=== PATIENT | male | born 1965 | race African-American/Black ===

== ENCOUNTER 2017-08-27 14:47 | Observation (INO) | payer OTHER ==
[~2017-08-27] VITALS: Ht 182.9 cm; Wt 115.7 kg
[~2017-08-27 14:47] MED LIST: TAMIFLU 75MG75 MG PO
[2017-08-27 15:20] LABS: ABSOLUTE BASOPHIL COUNT 0 /CUMM (0.0-0.2); ABSOLUTE EOSINOPHIL COUNT 0.1 /CUMM (0.0-0.7); ABSOLUTE GRANULOCYTE CT 6.4 /CUMM (1.4-6.5); ABSOLUTE LYMPH COUNT 1.5 /CUMM (1.2-3.4); ABSOLUTE MONOCYTE COUNT 0.7 /CUMM (0.10-0.60); BASOPHIL % 0.4 % (0.0-2.0); EOSINOPHIL % 0.9 % (0-5); GRANULOCYTE % 73.6 % (42.2-75.2); HEMATOCRIT 45.9 % (42-52); MEAN CORPUSCULAR HGB 26.6 PG (27.0-31.0); MEAN CORPUSCULAR HGB CONC 32.6 G/DL (33.0-37.0); MEAN CORPUSCULAR VOLUME 81.5 FL (80.0-94.0); MEAN PLATELET VOLUME 8.9 FL (7.4-10.4); PLATELET COUNT 212 /CUMM (130-400); RBC DISTRIBUTION WIDTH 14.5 % (11.5-14.5); RED BLOOD CELL CT 5.64 /CUMM (4.70-6.10); WHITE BLOOD CELL COUNT 8.7 /CUMM (4.8-10.8)
[2017-08-27] MEDS ORDERED: MEDROL4 M2 PO (15:23)
[2017-08-27] MEDS ORDERED: DUEXIS 800-26.1 EACH PO (15:23)
[2017-08-27] MEDS ORDERED: CYCLOBENZAPRINE10 M1 PO (15:24)
--- NOTE | 2017-08-27 15:36 | ED NECK/BACK PAIN COMPLAINT ---
History of Present Illness General Chief Complaint: Low Back Pain/Injury Stated Complaint: BACK PAIN Source: patient, old records, friend Exam Limitations: no limitations Vital Signs & Intake/Output Vital Signs & Intake/Output Vital Signs Date Time Temp Pulse Resp B/P B/P Pulse O2 O2 Flow FiO2 Mean Ox Delivery Rate 08/27 1613 66 16 148/84 94 Room Air Room Air 08/27 1449 98.4 72 18 146/80 98 Room Air Allergies Coded Allergies: NO KNOWN ALLERGIES (12/28/12) NO ALLERGIES PER RN AT 1633 ON 12/28/12 - [facility] Reconcile Medications Cyclobenzaprine HCl 10 MG TABLET 1 TAB PO TID MUSCLE RELAXANT (Reported) Ibuprofen/Famotidine (Duexis 800-26.6 MG Tablet) 800 MG-26.6 MG TABLET 1 TAB PO TID PAIN (Reported) Methylprednisolone. (Medrol) 4 MG TAB.DS.PK 1 DP PO DAILY STEROID (Reported) 6 on day 1 then reduce by one tablet daily until gone Triage Note: RECEIVED [address] [employer] EMPLOYEE BOUGHT DIRECTLY TO ROOM # 7 WITH C/O MID LOWER BACK PAIN, STARTED LAST SUNDAY. PT PRESENTS TO THE ED TODAY WITH WORSENING BACK PAIN NOW RADIATING TO BUTTUCK, RIGHT ANTERIOR AND POSTERIOR THIGH, WITH INABILITY TO WEIGHT BEAR AND NUMBNESS/TINGLING TO RIGHT THIGH. EVALUATED BY DR VALENZUELA UPON ARRIVAL TO THE ED AND ROOM # 7. Triage Nurses Notes Reviewed? yes Onset: Last week Duration: day(s):, continues in ED, getting worse, waxing and waning Timing: recent history Quality/Severity: severe, radiation Location: lumbar spine, paraspinous muscles Radiation: buttocks, upper legs Context: turning/bending Method of Injury: twisted Loss of Consciousness: no loss of consciousness Modifying Factors: immobilization, jarring, movement, pain medication, rest Associated Symptoms: lower back pain, muscle spasm, numbness in legs/feet, trouble walking HPI: 1 week prior to admission patient recalls assisting with hip surgery and later felt his lower back tighten up. He has had progressive increase in pain limited range of motion despite steroid muscle relaxant anti-inflammatory. His pain became debilitating unable to get out of bed without difficulty complaining of severe mid to right low back pain radiating to the outer thigh and knee with tingling and numbness to this area. He denies fever chills nausea vomiting diarrhea abdominal pain chest pain shortness breath headache dysuria rash bleeding change in bowel bladder habit. Past History Travel History Traveled to [place] past 21 day Yes Medical History Any Pertinent Medical History? 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 No Review of Systems Review of Systems Constitutional: Reports: no symptoms. Eyes: Reports: no symptoms. Ears, Nose, Throat, Mouth: Reports: no symptoms. Respiratory: Reports: no symptoms. Cardiovascular: Reports: no symptoms. Gastrointestinal/Abdominal: Reports: no symptoms. Musculoskeletal: Reports: see HPI, back pain, muscle pain, muscle stiffness. Skin: Reports: no symptoms. Neurological/Psychological: Reports: no symptoms. All Other Systems: Reviewed and Negative Physical Exam Physical Exam General Appearance: well developed/nourished, alert, awake, anxious, severe distress, obese Head: atraumatic, normal appearance Eyes: Bilateral: normal appearance, PERRL, EOMI, normal inspection. Ears, Nose, Throat, Mouth: hearing grossly normal, moist mucous membrane Neck: normal inspection, supple, full range of motion, normal alignment Respiratory: normal breath sounds, chest non-tender, no respiratory distress, quiet respiration, lungs clear Cardiovascular: regular rate/rhythm, normal peripheral pulses, norml femoral pulses equa Peripheral Pulses: 4+ carotid (R), 4+ carotid (L) Gastrointestinal: normal bowel sounds, soft, non-tender, no organomegaly Back: normal inspection, vertebral tenderness, decreased range of motion, muscle spasm Extremities: non-tender Straight Leg Raising: Right: Pain at ____ degrees (5). Left: Pain at ____ degrees (5). Sensory: Medial Le: L4R, L4L. Top of Foot: 2: L5R, L5L. Sole of Foot: 2: SIR, MARIMAR. Motor: Deficit L4 Right: No Deficit L4 Left: No Deficit L5 Right: No Deficit L5 Left: No Deficit S1 Right: No Deficit S1 Right: No DTR: Deficit L4 Left: No Deficit L4 Right: No Deficit S1 Left: No Deficit S1 Right: No Neurologic/Psych: awake, alert, oriented x 3, normal mood/affect Skin: intact, normal color, warm/dry Core Measures CVA/TIA Diagnosis: No Progress Differential Diagnosis: herniated disc, myofascial strain, sciatica, T/L spine injury Plan of Care: Orders Procedure Date/time Status Regular Diet 08/27 D Active OXYGEN SETUP (GEN) 08/27 1725 Active Saline Lock 08/[address] in observation 08/27 172 Active Vital Signs 08/27 1725 Active Activity/Ambulation 08/27 172 Active Code Status 08/27 172 Active HIGH SENSITIVITY CRP 08/27 145 Complete WESTERGREN SED RATE 08/27 145 Complete COMPREHENSIVE METABOLIC PANEL 08/27 145 Complete CBC WITHOUT DIFFERENTIAL 08/27 1454 Complete Current Medications Sig/Jeni Start time Last Medication Dose Stop Time Status Admin Dexamethasone 10 MG ONCE ONE 08/27 173 UNir (Decadron) 08/27 173 Laboratory Tests 08/27/17 1512: Anion Gap 11, Estimated GFR > 60, BUN/Creatinine Ratio 21.0, Glucose 94, Calcium 9.3, Total Bilirubin 0.6, AST 14 L, ALT 24, Alkaline Phosphatase 52, C-React Prot High Sens 0.6 L, Total Protein 7.0, Albumin 3.5, Globulin 3.5, Albumin/ Globulin Ratio 1.0 L, CBC w Diff NO MAN DIFF REQ, RBC 5.64, MCV 81.5, MCH 26.6 L, MCHC 32.6 L, RDW 14.5, MPV 8.9, Gran % 73.6, Lymphocytes % 17.3 L, Monocytes % 7.8, Eosinophils % 0.9, Basophils % 0.4, Absolute Granulocytes 6.4, Absolute Lymphocytes 1.5, Absolute Monocytes 0.7 H, Absolute Eosinophils 0.1, Absolute Basophils 0, ESR Westergren 8 Diagnostic Imaging: Viewed by Me: MRI. Discussed w/RAD: MRI. Radiology Impression: 1. Small central disc herniation at L2-L3. 2. At L4-L5, there is disc herniation into the right foraminal zone resulting in impingement upon the exiting right L4 nerve root. Departure Departure Time of Disposition: 1736 Disposition: STILL A PATIENT Condition: Stable Clinical Impression Primary Impression: Intractable back pain Secondary Impressions: Intervertebral disk syndrome, Lumbar nerve root impingement Referrals: Adolfo Johnson MD (PCP/Family) Departure Forms: Customer Survey General Discharge Information Observation Note Spoke With: Cheryl RUSSO,Scarlet Clayton Physician Advisor Notified: CARLOS RUSSO,HANK Maki Place Patient In: Non-ED OBS Care Area Rationale for Observation: My rational for observation is as follows analgesia steroids neurosurgery evaluation physical therapy continuing care discharge planning. Critical Care Note Critical Care Note Critical Care Time: 30-74 min (35)
--- NOTE | 2017-08-27 17:41 | MRI REPORT ---
EXAMINATION: MR LUMBAR SPINE WITHOUT CONTRAST CLINICAL INFORMATION: Lower back pain radiating to right thigh and knee. Sciatica. COMPARISON: None TECHNIQUE: MRI of the lumbar spine without contrast was obtained using routine sequences on a high-field 1.5 Ama magnet. FINDINGS: VERTEBRAL BODIES AND PARASPINAL STRUCTURES: The lumbar vertebral bodies have normal height, alignment and marrow signal intensity. Paraspinal soft tissues are unremarkable. CONUS MEDULLARIS AND CAUDA EQUINA: Conus medullaris is normal, terminating at the T12-L1 level. The nerves of the cauda equina are normal with respect to their caliber, course and signal. SPINAL LEVELS: L1-L2: Unremarkable. L2-L3: Small central disc protrusion produces mild indentation on the ventral surface of the thecal sac. No central canal or neural foraminal stenosis. L3-L4: Unremarkable. L4-L5: There is disc protrusion in the right foraminal zone. The disc material impinges upon the exiting right L4 nerve root. Otherwise, unremarkable. No central canal stenosis or left-sided neural foraminal stenosis. L5-S1: Unremarkable. IMPRESSION: 1. Small central disc herniation at L2-L3. 2. At L4-L5, there is disc herniation into the right foraminal zone resulting in impingement upon the exiting right L4 nerve root.
--- NOTE | 2017-08-27 17:50 | PN- Neurosurgical ---
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 Was placed on medrol dose mey and flexeril 3d ago without improvement and presents to ED for further eval today. Denies LLE pain, N/T/W and denies B/B dysfunction. No h/o similar sx in past or recent trauma, but job requires him to lift on regular basis in the OR and on floor. Neurologic exam c/w normal motor and sensory exam bilat LE. Hypoactive DTR's bilat knees, 1+ bilat ankles, no LT signs + R SLR at 40 degrees, neg L SLR to 90 gait not tested as pt somewhat sedated from recent MSO4 and ativan MRI with right lateral, foraminal and far lateral L4/5 HNP with R L4/5 NRI. Otherwise normal disc heights, alignment and no other signif region of HNP or neural impingement. Impr: Acute R L4/5 HNP with radiculopathy Plan: -admit Neurosurgery -pain control -10-14d prednisone taper, GI prophylaxis -start neurontin 300mg tonight, then 300bid tomorrow -can try ultram [id number] prn, robaxin 750Q8 prn -try to avoid opioids but if needed, consider vicoden 5mg q4-6h prn -DVT prophylaxis -PT eval in am -if pain control remains an issue, consider selective R L4 NRB -if pain improves, consider outpt PT trial -if fails trial of conservative tx, would be candidate for surgery Discussed impression and plan with pt who is in agreement. Surgical PA's, ED attending also aware.
--- NOTE | 2017-08-27 19:01 | History & Physical Pre-Op ---
Yamile Alfaro 08/27/17 0359: General Information and HPI MD Statement: I have seen and personally examined ALBERTO MO and documented this H&P. The patient is a 52 year old M who presented with a patient stated chief complaint of [low back pain with radiculopathy to right lower extremity]. History of Present Illness: Alberto Mo is a 52 year old male who presents to the ER today with complaints of low back pain with radiculopathy to his entire right lower extremity. Onset of discomfort was approximately one week ago while and began acutely while assisting in a surgical procedure at work. Over the course of the week he has noted paresthesias in the anterior thigh while ambulatory. He has tried flexoril as well as nsaids and medrol dose pack with minimal relief. Today he presents with increasing difficulty moving his right leg and an inability to walk related to his discomfort. Symptoms improve when supine. He denies any bowel or bladder incontinence. He denies any prior back injury. He denies any spine related surgery. He is medically healthy. Allergies/Medications Allergies: Coded Allergies: NO KNOWN ALLERGIES (12/28/12) NO ALLERGIES PER RN AT 1633 ON 12/28/12 - [facility] Home Med list Cyclobenzaprine HCl 10 MG TABLET 1 TAB PO TID MUSCLE RELAXANT (Reported) Docusate Sodium (Colace) 100 MG CAPSULE 1 CAP PO BID CONSITPATION DISCONTINUE USE IF YOU DEVELOP LOOSE STOOL OR DIARRHEA Ibuprofen/Famotidine (Duexis 800-26.6 MG Tablet) 800 MG-26.6 MG TABLET 1 TAB PO TID PAIN (Reported) Methocarbamol (Robaxin-750) 750 MG TABLET 1 TAB PO Q8P PRN SPASM Methylprednisolone. 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 Home Who Do You Live With? spouse Primary Language: Dutch Functional Ability ADLs Independent: dressing, eating, toileting, bathing. Employment History Employment: Employed Review of Systems Review of Systems Constitutional: Reports: weakness (right lower extremity). EENTM: Reports: no symptoms. Cardiovascular: Reports: no symptoms. Respiratory: Reports: no symptoms. GI: Reports: no symptoms. Genitourinary: Reports: no symptoms. Musculoskeletal: Reports: back pain. Skin: Reports: no symptoms. Neurological/Psychological: Reports: no symptoms. Hematologic/Endocrine: Reports: no symptoms. Immunologic/Allergic: Reports: no symptoms. All Other Systems: Reviewed and Negative Exam & Diagnostic Data Last 24 Hrs of Vital Signs/I&O Vital Signs Date Time Temp Pulse Resp B/P B/P Pulse O2 O2 Flow FiO2 Mean Ox Delivery Rate 08/27 1613 66 16 148/84 94 Room Air Room Air 08/27 1449 98.4 72 18 146/80 98 Room Air Intake & Output 08/27 1600 08/27 0800 08/27 0000 Intake Total Output Total Balance Patient 255 lb Weight Physical Exam: Physical exam completed by Dr. Luna, please see brief attending note for findings. Assessment/Plan Assessment/Plan: This is a 52 year old male who presents to ER today with complaints of back pain and radiculopathy to right lower extremity that began approximately one week ago while assisting in a surgical procedure at work. 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 He has been evaluated by Dr. Scarlet Luna. He has undergone an MRI which shows evidence of a disc herniation and nerve root compression at L4-5. -Place in 23 hour observation status for pain control -Physical therapy evaluation tomorrow -Tramadol 50 q6p -Robaxin 750 q8p -Offirmev 1000mg q6p -Prednisone 60 tonight to start a 10-14 day taper. Remainder of taper will be as follows: day 2: 40 mg day 3: 40 mg day 4: 30 mg day 5: 30 mg day 6: 20 mg day 7: 20 mg day 8: 20 mg day 9: 10 mg day 10: 10 mg day 11: 10 mg day 12: 5 mg day 13: 5 mg day 14: 5 mg -Gabapentin 300 tonight -Gabapentin 300 bid tomorrow -Gabapentin 300 in morning and 600 in evening starting sunday -GI ppx: Prilosec 40 daily -DVT ppx: ALPS, hep sub q If pain is adequately controlled, discharge to home tomorrow to follow up with Dr. Luna as outpatient If unable to control pain, will consider an L4 NRB as described by Dr. Luna in her brief attending note. Bowel regimen given, regular diet. As Ranked By This Provider Problem List: 1. Intractable back pain 2. Lumbar nerve root impingement 3. Intervertebral disk syndrome
[2017-08-27 20:48] VITALS: BP 138/92
[2017-08-28 06:44] VITALS: BP 128/80
--- NOTE | 2017-08-28 07:38 | PN- Neurosurgical ---
Subjective Subjective: Pt reports stable sx's of right ant thigh pain and parasthesias with movement and weight bearing but minimal in bed. No new complaints. Objective Vital Signs and I&Os Vital Signs Date Time Temp Pulse Resp B/P B/P Pulse O2 O2 Flow FiO2 Mean Ox Delivery Rate 08/29 643 97.7 70 22 128/80 95 Room Air 08/278 98.2 67 18 138/92 94 Room Air 08/27 2009 98.0 64 16 119/73 94 Room Air Room Air 08/27 1613 66 16 148/84 94 Room Air Room Air 08/27 1449 98.4 72 18 146/80 98 Room Air Intake & Output 08/28 0000 08/27 1600 08/27 0808/27 0000 08/26 1600 Intake Total Output Total 400 Balance -400 Output, Urine 400 Patient 115.666 kg 115.666 kg Weight Physical Exam: Pt awake and alert conversive and appropriate motor is full bilat LE to confrontational testing, sensory also grossly intact, + SLR no LE edema, no calf tenderness abd soft voiding on own Current Medications: Current Medications Sig/Jeni Start time Last Medication Dose Route Stop Time Status Admin Acetaminophen 1,000 MG Q6P PRN 08/27 1830 AC 08/28 N/A 1 UNIT IV 0145 Dexamethasone 10 MG ONCE ONE 08/27 1730 CAN IV 08/27 1731 Docusate Sodium 100 MG DAILY 08/28 1000 AC PO Gabapentin 300 MG BID 08/27 2200 AC 08/27 PO 2012 Gabapentin 0 .STK-MED ONE 08/27 1953 DC PO Gabapentin 300 MG ONCE ONE 08/27 1730 CAN PO 08/27 1731 Heparin Sodium 5,000 UNIT Q8 08/27 2200 AC (Porcine) SC Ketorolac 0 .STK-MED ONE 08/27 1527 DC Tromethamine .ROUTE Ketorolac 30 MG ONCE ONE 08/27 1500 DC 08/27 Tromethamine IV 08/27 1501 1537 Lorazepam 0 .STK-MED ONE 08/27 1614 DC .ROUTE Lorazepam 1 MG ONCE ONE 08/27 1600 DC 08/27 IV 08/27 1601 1613 Lorazepam 0 .STK-MED ONE 08/27 1529 DC .ROUTE Lorazepam 1 MG ONCE ONE 08/27 1500 DC 08/27 IV 08/27 1501 1537 Methocarbamol 750 MG Q8P PRN 08/27 1845 AC 08/28 PO 0145 Morphine Sulfate 0 .STK-MED ONE 08/27 1527 DC .ROUTE Morphine Sulfate 4 MG ONCE ONE 08/27 1500 DC 08/27 IV 08/27 1501 1537 Omeprazole 0 .STK-MED ONE 08/27 2021 DC PO Omeprazole 40 MG DAILY AC 08/27 1823 AC 08/28 PO 0643 Ondansetron HCl 4 MG Q8P PRN 08/27 181 AC IV Prednisone 40 MG DAILY 08/28 1000 AC PO Prednisone 60 MG ONCE ONE 08/27 1830 DC 08/27 PO 08/27 1832011 Tramadol HCl 50 MG Q6P PRN 08/27 183 AC 08/28 PO 0643 Results Last 48 Hours of Labs: Laboratory Tests 08/27 1512 Chemistry Sodium (137 - 145 mmol/L) 141 Potassium (3.5 - 5.1 mmol/L) 3.9 Chloride (98 - 107 mmol/L) 103 Carbon Dioxide (22 - 30 mmol/L) 27 Anion Gap (5 - 16) 11 BUN (9 - 20 mg/dL) 21 H Creatinine (0.7 - 1.2 mg/dL) 1.0 Estimated GFR (>60 ml/min) > 60 BUN/Creatinine Ratio (7 - 25 %) 21.0 Glucose (65 - 99 mg/dL) 94 Calcium (8.4 - 10.2 mg/dL) 9.3 Total Bilirubin (0.2 - 1.3 mg/dL) 0.6 AST (17 - 59 U/L) 14 L ALT (21 - 72 U/L) 24 Alkaline Phosphatase (< 127 U/L) 52 C-React Prot High Sens (1.0 - 3.0 mg/L) 0.6 L Total Protein (6.3 - 8.2 g/dL) 7.0 Albumin (3.5 - 5.0 g/dL) 3.5 Globulin (1.9 - 4.2 gm/dL) 3.5 Albumin/Globulin Ratio (1.1 - 2.2 %) 1.0 L Hematology CBC w Diff NO MAN DIFF REQ WBC (4.8 - 10.8 /CUMM) 8.7 RBC (4.70 - 6.10 /CUMM) 5.64 Hgb (14.0 - 18.0 G/DL) 15.0 Hct (42 - 52 %) 45.9 MCV (80.0 - 94.0 FL) 81.5 MCH (27.0 - 31.0 PG) 26.6 L MCHC (33.0 - 37.0 G/DL) 32.6 L RDW (11.5 - 14.5 %) 14.5 Plt Count (130 - 400 /CUMM) 212 MPV (7.4 - 10.4 FL) 8.9 Gran % (42.2 - 75.2 %) 73.6 Lymphocytes % (20.5 - 51.1 %) 17.3 L Monocytes % (1.7 - 9.3 %) 7.8 Eosinophils % (0 - 5 %) 0.9 Basophils % (0.0 - 2.0 %) 0.4 Absolute Granulocytes (1.4 - 6.5 /CUMM) 6.4 Absolute Lymphocytes (1.2 - 3.4 /CUMM) 1.5 Absolute Monocytes (0.10 - 0.60 /CUMM) 0.7 H Absolute Eosinophils (0.0 - 0.7 /CUMM) 0.1 Absolute Basophils (0.0 - 0.2 /CUMM) 0 ESR Westergren (0 - 10 MM) 8 Recent Imaging Studies: MR LUMBAR SPINE WITHOUT CONTRAST CLINICAL INFORMATION: Lower back pain radiating to right thigh and knee. Sciatica. COMPARISON: None TECHNIQUE: MRI of the lumbar spine without contrast was obtained using routine sequences on a high-field 1.5 Ama magnet. FINDINGS: VERTEBRAL BODIES AND PARASPINAL STRUCTURES: The lumbar vertebral bodies have normal height, alignment and marrow signal intensity. Paraspinal soft tissues are unremarkable. CONUS MEDULLARIS AND CAUDA EQUINA: Conus medullaris is normal, terminating at the T12-L1 level. The nerves of the cauda equina are normal with respect to their caliber, course and signal. SPINAL LEVELS: L1-L2: Unremarkable. L2-L3: Small central disc protrusion produces mild indentation on the ventral surface of the thecal sac. No central canal or neural foraminal stenosis. L3-L4: Unremarkable. L4-L5: There is disc protrusion in the right foraminal zone. The disc material impinges upon the exiting right L4 nerve root. Otherwise, unremarkable. No central canal stenosis or left-sided neural foraminal stenosis. L5-S1: Unremarkable. IMPRESSION: 1. Small central disc herniation at L2-L3. 2. At L4-L5, there is disc herniation into the right foraminal zone resulting in impingement upon the exiting right L4 nerve root. Assessment/Plan Assessment/Plan A/P: Pt 52yo with right lumbar radiculopathy secondary to right L4/5 foraminal HNP. Plan: -OOB with PT this am -pain control, percocet prn if ultram not effective -cont prednisone taper over 2 weeks, neurontin 300 bid today, 300/600 tomorrow -regular diet -DVT prophylaxis -if pain control remains problematic, would consider selective right L4 NRB before dc -if pain control improves, can dc to home and fu with me as outpt Core Measures Venous Thromboembolism VTE Risk Factors Immobility No Mechanical VTE Prophylaxis d/t N/A MechProphylax Ordered No VTE Pharm Prophylaxis d/t NA PharmProphylax ordered
[2017-08-28] MEDS ORDERED: ROBAXIN-750750 M1 PO (07:52)
[2017-08-28] MEDS ORDERED: PERCOCET 5-3251 EACH PO (07:52)
[2017-08-28] MEDS ORDERED: COLACE100 M1 PO (07:52)
--- NOTE | 2017-08-28 08:21 | Patient Discharge Instructions ---
Discharge Instructions General Discharge Information You were seen/treated for: Back pain and radiculopathy related to lumbar disc herniation You had these procedures: Conservative management Watch for these problems: -Increasing pain despite the use of pain medication, muscle relaxants, zeke analogs, and steroid. -Motor and sensory loss to right lower extremity -Loss of bladder and bowel function -Chest pain, shortnss of breath, tacycardia Special Instructions: Your prednisone taper is as follows: Day 1: 60 mg (given in hospital) Day 2: 40 mg (given in hospital) Day 3: 40 mg (given in hospital) Day 4: 30 mg Day 5: 30 mg Day 6: 20 mg Day 7: 20 mg Day 8: 20 mg Day 9: 10 mg Day 10: 10 mg Day 11: 10 mg Day 12: 5 mg Day 13: 5 mg Day 14: 5 mg Please follow directions regarding gabapentin. You are taking 300 mg capsules. -Take one cap in am, take two caps in pm Diet Continue normal diet: Yes Recommended Diet: Regular Activity Full Activity/No Limits: No Activity Self Limited: Yes Pounds, do NOT lift more than: 5 (not heavier than a phonebook) Acute Coronary Syndrome Inclusion Criteria At DC or during hospital stay patient has or had the following: ACS DIAGNOSIS No Discharge Core Measures Meds if any: Prescribed or Continued at Discharge Meds if any: NOT Prescribed or Continued at Discharge Congestive Heart Failure Inclusion Criteria At DC or during hospital stay patient has or had the following: CHF DIAGNOSIS No Discharge Core Measures Meds if any: Prescribed or Continued at Discharge Meds if any: NOT Prescribed or Continued at Discharge Cerebrovascular accident Inclusion Criteria At DC or during hospital stay patient has or had the following: CVA/TIA Diagnosis No Discharge Core Measures Meds if any: Prescribed or Continued at Discharge Meds if any: NOT Prescribed or Continued at Discharge Venous thromboembolism Inclusion Criteria VTE Diagnosis No VTE Type NONE VTE Confirmed by (Test) NONE Discharge Core Measures - Per Current guidelines, there needs to be overlap - treatment for the first 5 days of Warfarin therapy. - If discharged on Warfarin prior to 5 days of - overlap therapy, the patient will need to be - assessed for post discharge needs including - *Post discharge parental anticoagulation - *Warfarin and/or parental anticoagulation education - *Follow up date to check INR post discharge At least 5 days overlap therapy as Inpatient No Meds if any: Prescribed or Continued at Discharge Note: Overlap Therapy is Warfarin and Anticoagulant Meds if any: NOT Prescribed or Continued at Discharge
--- NOTE | 2017-08-28 08:31 | Discharge Summary ---
Visit Information Visit Dates Admission Date: 08/27/17 Discharge Date: 08/29/17 Hospital Course Course Attending Physician: Cheryl RUSSO,Scarlet Clayton Primary Care Physician: Adolfo Johnson MD [facility] Course: Bo was placed in observation status for pain control on 08/27/2017 with a chief complaint of intractable back pain and radicular symtoms affecting his right lower extremity. An MRI was obtained upon arrival to ER and there was evidence of L4-5 disc herniation with nerve root compression. Conservative treatment was provided which included pain medication, zeke analogs, muscle relaxants, and a 14 day steroid taper. He was also evaluated and treated by physical therapy. Throughout the hospital course his vital signs remained stable and within normal limits. He responded to conservative treatment and was deemed appropriate for discharge to home with instructions to follow up with Dr. Luna within one week of discharge for further management. Allergies: Coded Allergies: NO KNOWN ALLERGIES (12/28/12) NO ALLERGIES PER RN AT 1633 ON 12/28/12 - [facility] Disposition Summary Disposition Principal Diagnosis: L4-5 disc herniation with nerve root compression Additional Diagnosis: None Discharge Disposition: home or self care Discharge Instructions General Discharge Information Code Status: Full Code Patient's Diet: Regular Patient's Activity: OOB, wbat Follow-Up Instructions/Appts: Follow up with Dr. Luna in one week from hospital discharge Medications at Discharge Discharge Medications: Stop taking the following medications: Ibuprofen/Famotidine (Duexis 800-26.6 MG Tablet) 800 MG-26.6 MG TABLET ORAL THREE TIMES DAILY Methylprednisolone. (Medrol) 4 MG TAB.DS.PK ORAL DAILY Cyclobenzaprine HCl (Cyclobenzaprine HCl) 10 MG TABLET ORAL THREE TIMES DAILY Start taking the following new medications: Methocarbamol (Robaxin-750) 750 MG TABLET 1 Tablet ORAL EVERY 8 HOURS NEEDED as needed for SPASM Qty = 36 No Refills Comments: Last Taken:08/29/17 Time: 1430PM Docusate Sodium (Colace) 100 MG CAPSULE 1 Capsule ORAL TWICE DAILY Qty = 14 No Refills Instructions: DISCONTINUE USE IF YOU DEVELOP LOOSE STOOL OR DIARRHEA Comments: Last Taken: 08/28/17 Time: 0900am Oxycodone HCl/Acetaminophen (Percocet 5-325 MG Tablet) 5 MG-325 MG TABLET 1-2 Tablet ORAL EVERY 4-6 HOURS as needed for PAIN Qty = 36 No Refills Comments: ROXICODONE LAST GIVEN 08/29/17 @1245PM Prednisone (Prednisone) 10 MG TABLET 10 Milligram ORAL DAILY Qty = 20 No Refills Instructions: DIRECTED, DOSE WILL CHANGE DAILY TO COMPLETE A 14 DAY TAPER. SPECIFIC INSTRUCTIONS ON DISCHARGE PAPERWORK. Comments: PREDNISONE 40MG PO GIVEN 08/29/17 @0830AM Gabapentin (Neurontin) 300 MG CAPSULE 1-2 Capsule ORAL TWICE DAILY Qty = 90 No Refills Instructions: 1 cap every morning, 2 caps every evening Comments: Last Taken: 08/29/17 Time: 0830AM Copies To: Cheryl RUSSO,Scarlet Clayton
[2017-08-28 13:52] VITALS: BP 140/90
[2017-08-28] MEDS ORDERED: PREDNISONE10 M2 PO (17:44)
[2017-08-28] MEDS ORDERED: NEURONTIN300 M1 PO (18:27)
[2017-08-28 20:40] VITALS: BP 132/80
--- NOTE | 2017-08-29 07:38 | PN- Neurosurgical ---
Subjective Subjective: Better this am with increased neurontin. Burning right ant thigh pain with weight bearing, min sx in bed. Objective Vital Signs and I&Os Vital Signs Date Time Temp Pulse Resp B/P B/P Pulse O2 O2 Flow FiO2 Mean Ox Delivery Rate 08/29 2039 98.0 64 17 132/80 95 Room Air 08/28 1352 97.5 72 20 140/90 93 Room Air Intake & Output 08/29 0808/29 0000 08/28 1600 08/28 0808/28 0000 08/27 1600 Intake Total 174 729 0065 Output Total 600 450 0 400 Balance -652 528 5432 -400 Intake, IV 100 100 Intake, Oral 790 079 4220 Number 0 0 Bowel Movements Output, Urine 600 450 0 400 Patient 115.666 kg 115.666 kg Weight Physical Exam: awake and alert neuro exam normal bilat LE LE without edema, SCS on rosibel po, voiding on own ambulated yest in room with walker Current Medications: Current Medications Sig/Jeni Start time Last Medication Dose Route Stop Time Status Admin Acetaminophen 1,000 MG Q6P PRN 08/27 1830 AC 08/28 N/A 1 UNIT IV 2046 Docusate Sodium 100 MG DAILY 08/28 1000 AC 08/28 PO 0850 Gabapentin 600 MG QPM 08/29 2200 AC PO Gabapentin 300 MG DAILY 08/29 1000 AC PO Gabapentin 600 MG ONCE ONE 08/28 2044 DC 08/28 PO 08/28 204 2040 Gabapentin 300 MG BID 08/27 2199 DC 08/28 PO 08/28 220 2040 Heparin Sodium 5,000 UNIT Q8 08/27 2200 AC 08/29 (Porcine) SC 0624 Methocarbamol 750 MG Q8P PRN 08/27 1845 AC 08/29 PO 0624 Omeprazole 40 MG DAILY AC 08/27 1823 AC 08/29 PO 0623 Ondansetron HCl 4 MG Q8P PRN 08/27 1815 AC IV Oxycodone HCl 5 MG ONCE ONE 08/28 1045 DC 08/28 PO 08/28 1046 1044 Oxycodone HCl 5 MG Q4P PRN 08/28 0745 AC 08/28 PO 0849 Oxycodone HCl 10 MG Q4P PRN 08/28 0745 AC 08/29 PO 0357 Patient Medication 1 ED ONE ONE 08/28 1700 DC 08/28 Teaching ED 08/28 1701 2041 Prednisone 30 MG DAILY 08/30 1000 AC PO 08/31 1001 Prednisone 40 MG DAILY 08/28 1000 AC 08/28 PO 08/29 1001 0849 Results Last 48 Hours of Labs: Laboratory Tests 08/27 1512 Chemistry Sodium (137 - 145 mmol/L) 141 Potassium (3.5 - 5.1 mmol/L) 3.9 Chloride (98 - 107 mmol/L) 103 Carbon Dioxide (22 - 30 mmol/L) 27 Anion Gap (5 - 16) 11 BUN (9 - 20 mg/dL) 21 H Creatinine (0.7 - 1.2 mg/dL) 1.0 Estimated GFR (>60 ml/min) > 60 BUN/Creatinine Ratio (7 - 25 %) 21.0 Glucose (65 - 99 mg/dL) 94 Calcium (8.4 - 10.2 mg/dL) 9.3 Total Bilirubin (0.2 - 1.3 mg/dL) 0.6 AST (17 - 59 U/L) 14 L ALT (21 - 72 U/L) 24 Alkaline Phosphatase (< 127 U/L) 52 C-React Prot High Sens (1.0 - 3.0 mg/L) 0.6 L Total Protein (6.3 - 8.2 g/dL) 7.0 Albumin (3.5 - 5.0 g/dL) 3.5 Globulin (1.9 - 4.2 gm/dL) 3.5 Albumin/Globulin Ratio (1.1 - 2.2 %) 1.0 L Hematology CBC w Diff NO MAN DIFF REQ WBC (4.8 - 10.8 /CUMM) 8.7 RBC (4.70 - 6.10 /CUMM) 5.64 Hgb (14.0 - 18.0 G/DL) 15.0 Hct (42 - 52 %) 45.9 MCV (80.0 - 94.0 FL) 81.5 MCH (27.0 - 31.0 PG) 26.6 L MCHC (33.0 - 37.0 G/DL) 32.6 L RDW (11.5 - 14.5 %) 14.5 Plt Count (130 - 400 /CUMM) 212 MPV (7.4 - 10.4 FL) 8.9 Gran % (42.2 - 75.2 %) 73.6 Lymphocytes % (20.5 - 51.1 %) 17.3 L Monocytes % (1.7 - 9.3 %) 7.8 Eosinophils % (0 - 5 %) 0.9 Basophils % (0.0 - 2.0 %) 0.4 Absolute Granulocytes (1.4 - 6.5 /CUMM) 6.4 Absolute Lymphocytes (1.2 - 3.4 /CUMM) 1.5 Absolute Monocytes (0.10 - 0.60 /CUMM) 0.7 H Absolute Eosinophils (0.0 - 0.7 /CUMM) 0.1 Absolute Basophils (0.0 - 0.2 /CUMM) 0 ESR Westergren (0 - 10 MM) 8 Assessment/Plan Assessment/Plan Pt with slowly improving R L4/5 radic from L4/5 foraminal HNP Plan: -OOB -neurontin 300/300/900 tid -cont steroid taper -home later today if able to ambulate, fu with me next week in office -if still unable to rosibel ambulation, will try to arrange ALMITA while here this admission -cont percocet, robaxin prn Core Measures Venous Thromboembolism VTE Risk Factors Immobility No Mechanical VTE Prophylaxis d/t N/A MechProphylax Ordered No VTE Pharm Prophylaxis d/t NA PharmProphylax ordered Attending MD Review Statement Attending Statement Attending MD Statement: examined this patient, discuss w/resident/PA/[employer]
[2017-08-29 07:52] VITALS: BP 138/70
[2017-08-29 13:50] VITALS: BP 130/86
== END 2017-08-29 16:40 ==
LOC: ERH 14:47 → ERHI 17:26 → 2NB 17:26 → ENRESERV 18:44 → ENTRNSPT 20:23 → EDTRNSPT 20:32 → EDTRNSPTSTS 20:32 → 2NB 20:40 → CMPTRNSPT 20:54 → ENTRNSPT 08-29 16:01 → 2NB 08-29 16:40 → CMPTRNSPT 08-29 16:49
PROVIDERS: Emergency Medicine
DX: M51.26 Other intervertebral disc displacement, lumbar region (principal); M54.16 Radiculopathy, lumbar region
CPT/HCPCS: 72148; 96372; 96374; 96375; 96376; 97110-GP; 97161-GP; 97530-GP; G0378; J0131; J1644; J1885; J7512